=== PATIENT | male | born 2000 | race Caucasian/White ===

== ENCOUNTER 2022-03-12 03:34 | Emergency (ER) | payer OTHER ==
[2022-03-12] MEDS ORDERED: Ondansetron PF 4 MG/2 ML Vial ONE (03:55)
== END 2022-03-12 05:11 | disposition home or self-care (01) ==
LOC: ERS 03:34
DX: F10.129 Alcohol abuse with intoxication, unspecified (principal); F17.200 Nicotine dependence, unspecified, uncomplicated
CPT/HCPCS: 96374; J2405